=== PATIENT | female | born 1985 | race Caucasian/White ===

== ENCOUNTER 2020-12-22 18:26 | Emergency (ER) | payer OTHER ==
[~2020-12-22] VITALS: Ht 167.6 cm; Wt 81.7 kg
[2020-12-22] MEDS ORDERED: NUVARING VAGIN1 EACH VAG (18:52)
[2020-12-22 19:43] LABS: ABSOLUTE LYMPHOCYTES 1.1 thou/uL (0.8-5.3); ABSOLUTE MONOCYTES 0.4 thou/uL (0.0-1.2); ABSOLUTE NEUTROPHILS 3.9 thou/uL (1.6-8.1); BASOPHILS 0.5 %; EOSINOPHILS 0.4 %; HEMATOCRIT 45.3 % (37.0-47.0); HEMOGLOBIN 15.2 gm/dL (12.0-15.0); LYMPHOCYTES 20.1 %; MCH 25.2 pg (26.0-34.0); MCHC 33.5 g/dL (28.0-37.0); MCV 75.2 fL (80.0-100.0); MONOCYTES 7.9 %; MPV 8.9 fl. (7.2-11.1); NUCLEATED RBCS 0 /100WBC; PLATELET COUNT* 220 thou/uL (150-400); POLYS 71.1 %; RBC 6.02 mil/uL (4.20-5.00); RDW-CV 14.7 % (10.5-14.5); WBC 5.4 thou/uL (4.0-11.0)
[2020-12-22 19:54] LABS: CALCIUM 8.3 mg/dL (8.5-10.1); CREATININE 0.9 mg/dL (0.6-1.3); POTASSIUM 3.6 mmol/L (3.5-5.1)
[2020-12-22 19:58] LABS: ALBUMIN 2.9 g/dL (3.4-5.0); TOTAL BILIRUBIN 0.5 mg/dL (<0.1-1.0)
[2020-12-22 20:00] LABS: APTT 24.2 Seconds (25.0-31.3); INR 0.9
[2020-12-22] MEDS ORDERED: MEDROLDOSEPACK PO (22:46)
[2020-12-22] MEDS ORDERED: ZOFRAN ODT4 MG PO (22:46)
[2020-12-22] MEDS ORDERED: ZPAK PO (22:46)
[2020-12-22] MEDS ORDERED: VENTOLIN HFA 1818 GM INH (22:46)
[2020-12-22 22:56] VITALS: BP 141/75
== END 2020-12-22 22:57 | disposition home or self-care (01) ==
LOC: M.ERS 18:26
PROVIDERS: Nurse Practitioner Family
DX: U07.1 COVID-19 (principal)